=== PATIENT | male | born 1965 | race Caucasian/White ===

== ENCOUNTER → 2021-11-23 17:02 | Outpatient (BNVA) | payer MEDICAID, SELFPAY | PROVIDERS: PCP Family Medicine; Visit Provider Nurse Practitioner Family | DX: R00.2 Palpitations (principal); I10 Essential (primary) hypertension | CPT/HCPCS: 80053; 80061; 83721 ==

== ENCOUNTER → 2021-12-06 12:56 | Outpatient (BNVA) | payer MEDICAID, SELFPAY | PROVIDERS: PCP Family Medicine; Visit Provider Internal Medicine Cardiovascular Disease | DX: R01.1 Cardiac murmur, unspecified (principal); I44.7 Left bundle-branch block, unspecified; I44.0 Atrioventricular block, first degree | CPT/HCPCS: 93246 ==

== ENCOUNTER → 2022-01-25 14:40 | Outpatient (BNVA) | payer MEDICAID, SELFPAY | PROVIDERS: PCP Nurse Practitioner Family; Visit Provider Internal Medicine Cardiovascular Disease | DX: R07.89 Other chest pain (principal); R01.1 Cardiac murmur, unspecified; R00.2 Palpitations; I10 Essential (primary) hypertension; Z87.891 Personal history of nicotine dependence | CPT/HCPCS: 93005; 99204 ==

== ENCOUNTER → 2022-04-04 10:34 | Outpatient (BNVA) | payer MEDICAID, SELFPAY | PROVIDERS: PCP Nurse Practitioner Family; Visit Provider Surgery | DX: L02.91 Cutaneous abscess, unspecified (principal) | CPT/HCPCS: 99204 ==

== ENCOUNTER 2022-04-05 | Outpatient (CLI) | payer MEDICAID, SELFPAY | END 2022-04-05 23:59 | disposition home or self-care (01) | LOC: RAD 04-10 16:04 | PROVIDERS: PCP Nurse Practitioner Family; Visit Provider Internal Medicine Cardiovascular Disease | DX: R07.9 Chest pain, unspecified (principal); E78.00 Pure hypercholesterolemia, unspecified; R01.1 Cardiac murmur, unspecified; R00.2 Palpitations | CPT/HCPCS: 99213 ==

== ENCOUNTER 2022-04-26 08:08 | Outpatient (CLI) | payer MEDICAID, SELFPAY ==
[2022-04-26 08:27] VITALS: BMI 29.2
--- NOTE | 2022-04-26 09:13 | ECG_ITS ---
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 Interpretive Statements NAME OF STUDY: EXERCISE SESTAMIBI STRESS TEST INDICATION: Chest Pain PROCEDURE: The baseline electrocardiogram showed normal sinus rhythm with right bundle branch block pattern. First-degree AV block. Some nonspecific T wave changes.. At the baseline, the patient's blood pressure was 155/98 mm Hg with a heart rate of 73 bpm. The patient exercised for 7 minutes and 30 seconds on a standard [place] protocol. Patient attained a maximum heart rate of 155 beats per minute(94% of the maximum predicted heart rate) with a blood pressure at the peak exercise of 230/109 mm Hg. The EKG at the peak exercise revealed no significant changes. Patient did not have any chest pain or any significant arrhythmis with the exercise Sestamibi was injected 1 minute prior to the peak exercise During the recovery phase, there were no new changes. Blood pressure at the end of the recovery phase was 135/86 mm Hg with a heart rate of 83 per minute. CONCLUSION: 1. No significant EKG changes with the treadmill exercise 2. No exercise-induced chest pain or cardiac arrhythmia 3. Fair exercise tolerance, attained a maximum of 10.2 METs 4. Sestamibi/Sestamibi perfusion results pending; see separate report. Electronically Signed On 04-28-2022 15:57:48 CDT by Dion Ordonez M.D. [id number]
--- NOTE | 2022-04-26 09:13 | NMCV_ITS ---
NM rj perf SPECT r/s* [id number] Ronni Buckner Age: 56 Gender: M : 1965 Exam Date: 04/26/2022 09:13 Ordering Phys: Dion Ordonez MD ([email or web address]) Technologist: MARKY Martinez Exam Location: [facility] Indications: CHEST PAIN STRESS TEST Please see separate stress test report in [facility] for full findings IMAGE PROTOCOL Rest/Stress 1 Exercise Day Radiopharmaceutical Dose (mCi) Administration Site Administered by Rest: Tc-99m 10.6 IV MARKY Omer Sestamibi Stress:Tc-99m 32.7 IV MARKY Omer Sestamichato Rest: 26-Apr-2022 60 Discovery 630 Stress: 26-Apr-2022 15 Discovery 630 Radiopharmaceutical was injected at 87 % maximum heart rate. Images obtained in supine and prone position. SPECT RESULTS Technical Quality: Excellent Raw Data Analysis: Normal Image Corrections: No attenuation or motion correction applied Summed Stress Score: 1 Summed Rest Score: 1 Summed Difference Score: 0 PERFUSION FINDINGS Small area of slightly decreased tracer uptake was noted in the apical inferior and apical lateral region, with no significant reversibility. FUNCTIONAL RESULTS (calculated via Gated SPECT) Stress Image LV EF (%): 65 Stress EDV (mL):79 TID: 0.98 Stress ESV (mL):28 FUNCTIONAL FINDINGS: Segmental wall motion analysis revealing no gross wall motion normalities. IMPRESSIONS 1. Myocardial perfusion imaging revealing a small area of persistent decreased tracer uptake in the apical inferior and apical lateral regions, suggesting myocardial scarring versus attenuation artifact. 2. Normal LV ejection fraction 65%. 3. LV wall motion analysis revealing no gross wall motion normalities. 4. Normal LV volume Low probability for coronary ischemia, based on the above findings Dr Dion Ordonez MD FACC (Electronically Signed) Final Date: 26 April 2022 20:40 S
[2022-04-26 10:38] VITALS: BP 135/86; PULSE 86
== END 2022-04-26 08:09 | disposition home or self-care (01) ==
LOC: CDL 08:18
PROVIDERS: PCP Nurse Practitioner Family; Visit Provider Internal Medicine Cardiovascular Disease
DX: R07.9 Chest pain, unspecified (principal)
CPT/HCPCS: 78452; 93017; A9500

== ENCOUNTER → 2022-10-02 15:45 | Outpatient (BNVA) | payer MEDICAID, SELFPAY | PROVIDERS: PCP Nurse Practitioner Family; Visit Provider Nurse Practitioner Family | DX: I10 Essential (primary) hypertension (principal); R00.2 Palpitations | CPT/HCPCS: 99214 ==

== ENCOUNTER → 2023-11-23 11:06 | Outpatient (BNVA) | payer MEDICAID, SELFPAY | PROVIDERS: PCP Nurse Practitioner Family; Visit Provider Internal Medicine Cardiovascular Disease | DX: E78.00 Pure hypercholesterolemia, unspecified (principal); I10 Essential (primary) hypertension | CPT/HCPCS: 99213 ==